=== PATIENT | female | born 1985 | race Two or more races ===

== ENCOUNTER 2018-03-05 01:17 | Outpatient (CLI) | payer OTHER | END 2018-03-05 02:15 | disposition home or self-care (01) | LOC: LDOP 01:17 | PROVIDERS: ATTEND Student in an Organized Health Care Education/Training Program | DX: O26.899 Other specified pregnancy related conditions, unspecified trimester (principal); Z3A.00 Weeks of gestation of pregnancy not specified | CPT/HCPCS: 59025; 99201; G0463 ==

== ENCOUNTER 2018-03-06 22:57 | Outpatient (CLI) | payer OTHER ==
[~2018-03-06] VITALS: Ht 152.4 cm; Wt 67.3 kg
== END 2018-03-07 00:35 | disposition home or self-care (01) ==
LOC: LDOP 22:57
PROVIDERS: ATTEND Student in an Organized Health Care Education/Training Program
DX: O26.893 Other specified pregnancy related conditions, third trimester (principal); R10.9 Unspecified abdominal pain; O34.219 Maternal care for unspecified type scar from previous cesarean delivery; Z3A.39 39 weeks gestation of pregnancy
CPT/HCPCS: 59025; 76815; 99211; G0463

== ENCOUNTER 2018-03-07 11:53 | Inpatient (IN) | payer OTHER ==
[~2018-03-07] VITALS: Ht 152.4 cm; Wt 67.5 kg
[2018-03-07] MEDS ORDERED: OXYTOCIN 30U/ 0.9% NaCL 500ML 500 ML IV ONE (12:03)
[2018-03-07] MEDS ORDERED: NEWBORN KIT ONE (12:11)
[2018-03-07] MEDS ORDERED: ONDANSETRON 2MG/ML, 2ML ONE ×2 (12:11→22:29)
[2018-03-07] MEDS ORDERED: OXYTOCIN 30U/ 0.9% NaCL 500ML 500 ML ONE (12:12)
[2018-03-07] MEDS: ONDANSETRON 2MG/ML, 2ML IVPush PRN ×2 (12:16→22:31)
[2018-03-07] MEDS ORDERED: LACTATED RINGERS 1,000 ML IVBOLUS ONE (12:30)
[2018-03-07] MEDS ORDERED: FENTANYL PF 100 MCG/2ML IVPush PRN (12:30)
[2018-03-07] MEDS ORDERED: FENTANYL PF 100 MCG/2ML IV PRN (12:30)
[2018-03-07 12:32] LABS: MEAN CORPUSCULAR HGB CONC 33.6 g/dL (32.4-35.8); MEAN CORPUSCULAR VOLUME 86.4 fL (80-100); PLATELET COUNT 310 x10^3/uL (130-400); RED BLOOD COUNT 4.72 x10^6/uL (3.82-5.3); RED CELL DISTRIBUTION WIDTH 13.5 % (9.6-15.2)
[2018-03-07 12:40] VITALS: BP 131/75
[2018-03-07] MEDS: LACTATED RINGERS 1,000 ML IV SCH ×5 (12:58→22:57)
[2018-03-07 13:08] LABS: BASOPHILS # (AUTO) 0.04 x10^3/uL (0-0.1); BASOPHILS % (AUTO) 0 % (0-1); EOSINOPHILS % (AUTO) 0 % (1-7); LYMPHOCYTES # (AUTO) 1.12 x10^3/uL (1-3.4); LYMPHOCYTES % (AUTO) 6 % (22-44); MD SCAN; MONOCYTES # (AUTO) 0.29 x10^3/uL (0.2-0.8); MONOCYTES % (AUTO) 2 % (2-9); NEUTROPHILS # (AUTO) 17.97 x10^3/uL (1.8-6.8); NEUTROPHILS % (AUTO) 93 % (42-75)
[2018-03-07] MEDS ORDERED: BUPIVACAINE/PF 0.25% ONE (13:18)
[2018-03-07] MEDS ORDERED: FENTANYL/BUPIV./NS/PF 250 ML EPIDCONT SCH ×3 (13:20→13:22)
[2018-03-07] MEDS ORDERED: NALOXONE 0.4 MG/ML, 1ML IVPush PRN ×2 (13:30)
[2018-03-07] MEDS ORDERED: LACTATED RINGERS 1,000 ML IVBOLUS PRN ×2 (13:30)
[2018-03-07] MEDS ORDERED: EPHEDRINE 50 MG/ML, 1ML IVPush PRN (13:30)
[2018-03-07] MEDS: D5%-LACTATED RINGERS 1,000 ML IV SCH ×2 (14:57→22:43)
[2018-03-07] MEDS ORDERED: MISOPROSTOL 200 MCG TABLET ONE (16:51)
[2018-03-07] MEDS ORDERED: LIDOCAINE/PF 1%, 30ML ONE (16:51)
[2018-03-07 20:44] VITALS: BP 104/65
[2018-03-07] MEDS ORDERED: TERBUTALINE 1 MG/ML, 1ML ONE (23:37)
[2018-03-08] MEDS: LACTATED RINGERS 1,000 ML IV SCH (00:26)
[2018-03-08] MEDS: OXYTOCIN 30U/ 0.9% NaCL 500ML 500 ML IV SCH ×3 (02:01→22:01)
[2018-03-08] MEDS ORDERED: MISOPROSTOL 200 MCG TABLET PR PRN (02:30)
[2018-03-08] MEDS ORDERED: OXYcodone/APAP 5/325MG TABLET PO PRN ×2 (02:30)
[2018-03-08] MEDS ORDERED: MAALOX/HYOSCYAMINE/LIDOCAINE 45 ML BTL PO ONE (02:30)
[2018-03-08] MEDS ORDERED: DIPH,PERTUSS(ACELL),TET VAC/PF NC IM-VACC PRN (02:30)
[2018-03-08] MEDS ORDERED: MEASLES,MUMPS&RUBELLA VACC/PF 0.5 ML SQ PRN (02:30)
[2018-03-08] MEDS ORDERED: CALCIUM CARBONATE 500 MG TAB.CHEW PO PRN (02:30)
[2018-03-08] MEDS ORDERED: MAGNESIUM HYDROXIDE 8%, 30ML UDC PO PRN (02:30)
[2018-03-08] MEDS ORDERED: ACETAMINOPHEN 325 MG TABLET PO PRN ×2 (02:30)
[2018-03-08] MEDS ORDERED: ONDANSETRON 2MG/ML, 2ML IV PRN (02:30)
[2018-03-08] MEDS ORDERED: RHOGAM FROM BLOOD BANK 1 NOTE EA IM/IV ONE (02:30)
[2018-03-08 03:55] VITALS: BP 108/68
[2018-03-08] MEDS ORDERED: ONDANSETRON ODT 4 MG PO PRN (04:00)
[2018-03-08 07:05] VITALS: BP 114/67
[2018-03-08] MEDS: DOCUSATE 100 MG CAPSULE PO PRN ×2 (07:19→19:37)
[2018-03-08] MEDS: IBUPROFEN 600 MG TABLET PO PRN ×3 (07:19→19:37)
[2018-03-08] MEDS: PRENATAL VIT/IRON/FA 1 EACH TABLET PO SCH (07:19)
[2018-03-08 09:29] LABS: MEAN CORPUSCULAR HGB CONC 33.3 g/dL (32.4-35.8); MEAN CORPUSCULAR VOLUME 87.2 fL (80-100); RED CELL DISTRIBUTION WIDTH 13.6 % (9.6-15.2)
[2018-03-08 09:47] LABS: BASOPHILS # (AUTO) 0.06 x10^3/uL (0-0.1); BASOPHILS % (AUTO) 0 % (0-1); EOSINOPHILS % (AUTO) 0 % (1-7); LYMPHOCYTES # (AUTO) 1.55 x10^3/uL (1-3.4); LYMPHOCYTES % (AUTO) 9 % (22-44); MD SCAN; MEAN PLATELET VOLUME 7.5 fL (7.4-10.4); MONOCYTES # (AUTO) 0.52 x10^3/uL (0.2-0.8); MONOCYTES % (AUTO) 3 % (2-9); NEUTROPHILS # (AUTO) 15.25 x10^3/uL (1.8-6.8); NEUTROPHILS % (AUTO) 88 % (42-75); PLATELET COUNT 232 x10^3/uL (130-400)
[2018-03-08 13:15] VITALS: BP 116/80
[2018-03-08 16:30] VITALS: BP 103/67
[2018-03-08 19:35] VITALS: BP 110/65
[2018-03-08 23:42] VITALS: BP 113/74
[2018-03-09] MEDS: IBUPROFEN 600 MG TABLET PO PRN ×3 (02:39→16:49)
[2018-03-09 07:15] VITALS: BP 107/71
[2018-03-09] MEDS: OXYTOCIN 30U/ 0.9% NaCL 500ML 500 ML IV SCH ×2 (08:01→18:01)
[2018-03-09] MEDS: PRENATAL VIT/IRON/FA 1 EACH TABLET PO SCH (09:38)
[2018-03-09 19:15] VITALS: BP 129/78
[2018-03-09] MEDS: DOCUSATE 100 MG CAPSULE PO PRN (19:18)
[2018-03-10] MEDS: IBUPROFEN 600 MG TABLET PO PRN ×2 (00:34→06:58)
[2018-03-10 01:38] VITALS: BP 128/79
[2018-03-10] MEDS: OXYTOCIN 30U/ 0.9% NaCL 500ML 500 ML IV SCH ×2 (04:01→05:41)
[2018-03-10] MEDS: PRENATAL VIT/IRON/FA 1 EACH TABLET PO SCH (06:58)
[2018-03-10] MEDS: DOCUSATE 100 MG CAPSULE PO PRN (06:58)
[2018-03-10 07:00] VITALS: BP 122/75
[2018-03-10] MEDS ORDERED: IBUP-1222 PO (09:11)
== END 2018-03-10 11:16 | disposition home or self-care (01) | DRG 775 ==
LOC: LDOP 11:53 → LDIP 12:39 → 2NW 03-08 03:45
PROVIDERS: ADMIT Student in an Organized Health Care Education/Training Program; ATTEND Student in an Organized Health Care Education/Training Program
PROC: 10E0XZZ Delivery of Products of Conception, External Approach (ICD-10-PCS; principal; 2018-03-08)
PROC: 0KQM0ZZ Repair Perineum Muscle, Open Approach (ICD-10-PCS; 2018-03-08)
PROC: 3E0R3BZ Introduction of Anesthetic Agent into Spinal Canal, Percutaneous Approach (ICD-10-PCS; 2018-03-08)
PROC: 00HU33Z Insertion of Infusion Device into Spinal Canal, Percutaneous Approach (ICD-10-PCS; 2018-03-08)
DX: O34.211 Maternal care for low transverse scar from previous cesarean delivery (principal); O69.1XX0 Labor and delivery complicated by cord around neck, with compression, not applicable or unspecified; O70.1 Second degree perineal laceration during delivery; Z37.0 Single live birth; Z3A.39 39 weeks gestation of pregnancy
CPT/HCPCS: 36415; 82803; 85025; 86850; 86900; J2405; J3490; J3010; J7120; J7121